=== PATIENT | male | born 1995 | race Caucasian/White ===

== ENCOUNTER 2016-10-03 19:36 | Emergency (ER) ==
[2016-10-03] MEDS ORDERED: BOOSTRIX VACCINE IM ONE (20:32)
[2016-10-03] MEDS ORDERED: XYLOCAINE-MPF 1% INJ ONE (20:37)
--- NOTE | 2016-10-03 20:48 | PROVIDER DOCUMENTATION ---
HPI-Musculoskeletal Pain/Inj <Leyda Menon Kiran - Last Filed: 10/03/16 21:06> - GENERAL Source: patient - HX OF PRESENT ILLNESS-MUSKULOSKELTAL Quality of Pain: reports: none Severity in ED: mild Onset/Duration: just prior to arrival Timing: still present Modifying Factors: improves with: nothing Any recent injury?: Yes Locality of Occurance: Work Similar Symptoms Previously?: No Recently seen or treated by another doctor?: No - LOWER EXTREMITY PAIN/INJURY Lower Extremities Pain: knee: right Context / Method of Injury: reports: direct blow Associated Symptoms: reports: denies symptoms <Georges Phipps - Last Filed: 10/03/16 21:09> - GENERAL Chief Complaint: Work Related Injury Stated Complaint: WORKERS COMP INJURY Time Seen by Provider: 10/03/16 20:32 - HX OF PRESENT ILLNESS-MUSKULOSKELTAL Nature of Presenting Problem: PT CUT HIS RIGHT KNEE WITH A METAL PIPE PT HAS A 3CM LACERATION TO HIS RIGHT KNEE. (Georges Phipps) Review of Systems - Adult - REVIEW OF SYSTEMS - ADULT Constitutional: denies: chills, fever, fatique Cardiovascular: denies: chest pain, irregular heart rate, palpitations Respiratory: denies: chronic cough, cough, shortness of breath, wheezing Gastrointestinal: denies: abdominal pain, diarrhea, nausea, vomiting Integumentary: reports: other (3CM LACERATION OF THE RIGHT KNEE.). denies: hives, itching, rash <Georges Phipps - Last Filed: 10/03/16 21:09> Past History - Adult - PAST MEDICAL HISTORY-ADULT Review of Records: reports: Old Records Reviewed, Nursing Assessment Review, Medications Reviewed Gastrointestinal: reports: GERD - PRIOR SURGERIES/PROCEDURES Surgical/Procedure History: reports: reviewed, not pertinent - IMMUNIZATION STATUS Childhood Immunizations: See Nurse Assessment Flu Vaccine: See Nurse Assessment - FAMILY HISTORY Family History: reviewed, not pertinent - SOCIAL HISTORY Smoking: quit greater than 1 year Substance Use: none/never Alcohol Use Frequency: never Living Situation: family <Georges Phipps - Last Filed: 10/03/16 21:09> Physical Exam-Injury Related - Physical Exam-Injury Related Initial Vital Signs Reviewed: Yes General Appearance: appears well, alert, no apparent distress Eyes: PERRL/EOMI, pink conjunctivae, fundi clear, no AV nicking Head, Ears, Nose, Mouth & Throat: normocephalic/atraumatic, moist mucous membranes, normal ENT inspection, TMs normal, pharynx normal Respiratory: chest non-tender, lungs clear, normal breath sounds, no pleuratic chest pain, no respiratory distress, no accessory muscle use Cardiovascular: normal peripheral pulses, regular rate, rhythm, no edema, no gallop, no JVD, no murmur Abdominal Exam: normal bowel sounds, non tender, soft, no organomegaly, no pulsatile mass Extremity: normal range of motion, non-tender, normal gait, normal inspection, no pedal edema Integumentary: laceration. negative: rash, tenderness, abrasion, puncture wound (s) Psych/Mental Status: normal mood/affect, normal thought content, normal thought process, oriented x 3 - Glascow Coma Score Best Eye Response ([place]): (4) open spontaneously Best Verbal Response ([place]): (5) oriented Best Motor Response ([place]): (6) obeys commands [place] Total: 15 <Georges Phipps - Last Filed: 10/03/16 21:09> Procedures - LACERATION/WOUND REPAIR/FB Right Thigh Wound Location: Other: right anterior thigh about 2 inches above knee Wound Length: 3 cm Wound's Depth, Shape: superficial Wound Explored/Foreign Body: clean Irrigated with Saline?: Yes Prepped with: Betadine Anesthetic: 1% Volume of Anesthetic (ml's): 4 Wound Debrided: minimal Wound Repaired with: Sutures Suture Size/Type: 4.0, Nylon Number of Sutures: 5 Layer Closure?: No Sterile Dressing Applied?: Yes Splint Applied?: No Sling Applied?: No Post Procedure Neurovascular Exam: Intact <LynseyLeyda Kurt. - Last Filed: 10/03/16 21:06> Departure <yLnseyLeyda Kiran - Last Filed: 10/03/16 21:06> - Departure Time of Disposition Order: 21:07 Certified Medical Emergency: Emergent <Georges Phipps - Last Filed: 10/03/16 21:09> - Departure DIAGNOSIS: Laceration Disposition: HOME 01 Condition: Good Additional Instructions: ED Follow Up Instructions: You have been treated by a care provider in the Emergency Department. These instructions are being provided to you so you can have an understanding of how to care for yourself upon discharge. Upon discharge from the Emergency Department, you are responsible for making arrangements for follow-up care by a physician of your choice. Take all prescribed medications as directed. Return to the Emergency Department immediately for any new or worsening symptoms. You may call the Physician Referral phone number at [phone] to obtain a list of Physicians who are taking new patients. Referrals: Cristofer Bella MD [Primary Care Provider] - Attestation - Physician/ MARK Attestation Patient care was provided by Advanced Practice Provider:: Yes Advanced Practice Provider:: Leyda Menon Advanced Practice Provider documentation review:: The Mid-level provider documentation, treatment plan and medical decision making was reviewed by the physician who agrees with all treatment and medical decision making by the MLP. <Leyda Menon - Last Filed: 10/03/16 21:06> - Scribe Verification/Attestation Scribe:: Georges Phipps Acting as Scribe for:: Solomon Dooley Scribe documention review:: This chart was documented by a scribe and accurately reflects the service the provider performed and the decisions made by the provider. <Georges Phipps - Last Filed: 10/03/16 21:09> Physician Attestation
[2016-10-03 21:21] VITALS: BP 149/92
== END 2016-10-03 21:21 | disposition home or self-care (01) ==
LOC: P.ED 19:36
DX: S71.111A Laceration without foreign body, right thigh, initial encounter (principal); X58.XXXA Exposure to other specified factors, initial encounter; Z23 Encounter for immunization; Z87.891 Personal history of nicotine dependence; Z79.899 Other long term (current) drug therapy
CPT/HCPCS: 90471; 90715